=== PATIENT | female | born 1940 | race Caucasian/White ===

== ENCOUNTER 2019-07-22 15:32 | Emergency (ER) | payer MEDICARE, MEDICAID ==
[~2019-07-22] VITALS: Ht 152.4 cm; Wt 40.5 kg
[~2019-07-22 15:32] MED LIST: ASPIR 8181 MG PO; CARAFATE 11 GM/10 M1 PO; CELEXA20 MG PO; DIPHENHIST50 MG PO; IRON325 PO; LEVOTHYROXINE0.05 MG PO; NORCO 10-325 T1 EACH PO; PROTONIX40 M1 PO; TOLTERODINE TART2 MG PO; TRIPLE PASTE TP
[2019-07-22] MEDS ORDERED: AMLODIPINE BESY10 MG PO (15:40)
[2019-07-22] MEDS ORDERED: ASPIRIN81 M2 PO (15:40)
[2019-07-22] MEDS ORDERED: DIPHENHIST50 MG PO (15:41)
[2019-07-22] MEDS ORDERED: LUVOX 50MG TABL50 M1 PO (15:41)
[2019-07-22] MEDS ORDERED: KEFLEX500 M1 PO (15:42)
[2019-07-22] MEDS ORDERED: UNICOMPLEX M TA1 TA1 PO (15:44)
[2019-07-22] MEDS ORDERED: LORATADINE10 M1 PO (15:44)
[2019-07-22] MEDS ORDERED: MIRALAX17 GM PO (15:44)
[2019-07-22] MEDS ORDERED: NYAMYC15 GM TOP (15:46)
[2019-07-22] MEDS ORDERED: TEARS AGAIN15 ML OPHTHALMIC (15:46)
[2019-07-22] MEDS ORDERED: OMEPRAZOLE 20 M20 M1 PO (15:52)
[2019-07-22] MEDS ORDERED: TRAZODONE HCL50 MG PO (15:53)
[2019-07-22] MEDS ORDERED: TRAMADOL 50 MG50 MG PO (15:53)
[2019-07-22] MEDS ORDERED: OXYBUTYNIN 5 MG5 M2 PO (15:53)
[2019-07-22] MEDS ORDERED: PROTOPIC30 GM TOP (15:53)
[2019-07-22] MEDS ORDERED: TYLENOL325 MG PO (15:54)
[2019-07-22] MEDS ORDERED: VISTARIL 25 MG25 M1 PO (15:54)
[2019-07-22 17:06] LABS: URINE BILIRUBIN NEGATIVE (Negative); URINE BLOOD NEGATIVE (Negative); URINE CLARITY CLEAR; URINE COLOR YELLOW; URINE GLUCOSE-RANDOM NEGATIVE (Negative); URINE KETONES NEGATIVE (Negative); URINE LEUKOCYTES-REFLEX NEGATIVE (Negative); URINE NITRITE-REFLEX NEGATIVE (Negative); URINE PROTEIN NEGATIVE (Negative); URINE SPECIFIC GRAVITY 1.025 (1.005-1.030); URINE UROBILINOGEN 0.2 E.U./dl (0.2-1.0)
[2019-07-22] MEDS ORDERED: AUGMENTIN 875-1 EACH PO (17:40)
[2019-07-22] MEDS ORDERED: CENTANY30 GM TOP (17:41)
[2019-07-22 17:55] VITALS: BP 129/57
== END 2019-07-22 18:27 | disposition home or self-care (01) ==
LOC: M.ERS 15:32
PROVIDERS: Nurse Practitioner Family
DX: S81.811A Laceration without foreign body, right lower leg, initial encounter (principal); S90.31XA Contusion of right foot, initial encounter; I10 Essential (primary) hypertension; E78.00 Pure hypercholesterolemia, unspecified; F17.210 Nicotine dependence, cigarettes, uncomplicated; Z88.3 Allergy status to other anti-infective agents; W22.8XXA Striking against or struck by other objects, initial encounter; Y93.89 Activity, other specified; Y92.239 Unspecified place in hospital as the place of occurrence of the external cause; Y99.8 Other external cause status

== ENCOUNTER 2019-08-05 13:20 | Inpatient (IN) | payer MEDICARE, MEDICAID ==
[~2019-08-05] VITALS: Ht 152.4 cm; Wt 39.9 kg
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
[~2019-08-05 13:20] MED LIST changes: +AMLODIPINE BESY10 MG PO; +ASPIRIN81 M2 PO; +AUGMENTIN 875-1 EACH PO; +CENTANY30 GM TOP; +KEFLEX500 M1 PO; +LORATADINE10 M1 PO; +LUVOX 50MG TABL50 M1 PO; +MIRALAX17 GM PO; +NYAMYC15 GM TOP; +OMEPRAZOLE 20 M20 M1 PO; +OXYBUTYNIN 5 MG5 M2 PO; +PROTOPIC30 GM TOP; +TEARS AGAIN15 ML OPHTHALMIC; +TRAMADOL 50 MG50 MG PO; +TRAZODONE HCL50 MG PO; +TYLENOL325 MG PO; +UNICOMPLEX M TA1 TA1 PO; +VISTARIL 25 MG25 M1 PO
[2019-08-05 13:21] VITALS: BP 114/52
[2019-08-05] MEDS ORDERED: ROCEPHIN 11 GM/1001 IM (13:33)
[2019-08-05 14:08] LABS: ABSOLUTE BASOPHILS 0.1 thou/uL (0.0-0.2); ABSOLUTE EOSINOPHILS 0.7 thou/uL (0.0-0.7); ABSOLUTE LYMPHOCYTES 0.5 thou/uL (0.8-5.3); ABSOLUTE MONOCYTES 0.8 thou/uL (0.0-1.2); ABSOLUTE NEUTROPHILS 6.8 thou/uL (1.6-8.1); EOSINOPHILS 7.4 %; HEMATOCRIT 26.2 % (37.0-47.0); HEMOGLOBIN 8.8 gm/dL (12.0-15.0); LYMPHOCYTES 5.6 %; MCH 30.9 pg (26.0-34.0); MCHC 33.7 g/dL (28.0-37.0); MCV 91.6 fL (80.0-100.0); MONOCYTES 8.6 %; NUCLEATED RBCS 0 /100WBC; PLATELET COUNT* 340 thou/uL (150-400); POLYS 77.4 %; RBC 2.86 mil/uL (4.20-5.00); WBC 8.9 thou/uL (4.0-11.0)
[2019-08-05 14:15] LABS: CALCIUM 8.6 mg/dL (8.5-10.1); CREATININE 1.3 mg/dL (0.6-1.3); POTASSIUM 4.6 mmol/L (3.5-5.1)
[2019-08-05 14:20] LABS: ALBUMIN 2.6 g/dL (3.4-5.0); TOTAL BILIRUBIN 0.1 mg/dL (<0.1-1.0); TOTAL PROTEIN 6.3 g/dL (6.4-8.2)
[2019-08-05 16:50] VITALS: BP 145/61
[2019-08-05 16:56] VITALS: BP 112/47
[2019-08-05 17:10] VITALS: BP 135/56
--- NOTE | 2019-08-05 17:30 | NUR ---
REC'D REPORT FROM AIRPLANE PILOT CHIEF AT 1635. PATIENT TO UNIT VIA GURNEY AND AIRPLANE PILOT CHIEF AT 1650. PATIENT AMBULATED TO BATHROOM WITH ASSIST, UNSTEADY GAIT. A&OX4, ABLE TO EXPRESS NEEDS TO STAFF. MED/SURG STATUS. VS OBTAINED, WNL, O2 SATS >92% RA. ORIENTED TO ROOM, BED CONTROLS AND UNIT ROUTINE, ADMISSION ASSESSMENT DOCUMENTED. CALL LIGHT WITHIN REACH. HOURLY ROUNDING FOR SAFETY AND PATIENT NEEDS.
[2019-08-05 20:45] VITALS: BP 132/70
[2019-08-06 04:00] VITALS: BP 114/45
--- NOTE | 2019-08-06 05:02 | NUR ---
vitals wnl, temp max 99.6F, down to 98.6F with tylenol. pt complains of itching all over her body, partial relief from benadryl, reports this is normal for her since she moved to [employer]. able to reposition self in bed. call light within reach.
[2019-08-06 08:30] VITALS: BP 118/48
--- NOTE | 2019-08-06 10:00 | NUR ---
ASSUMED CARE AFTER REPORT APPROX 0730. OX4, ABLE TO EXPRESS NEEDS TO STAFF. MED/SURG STATUS. O2 SATS >92% RA. PATIENT C/O ITCHING. HOME MED OINTMENT NOT AVAILABLE, PATIENT WITH NO FAMILY MEMBER ABLE TO RETRIEVE MED FROM [facility]. PHYSICIAN TO BE CONTACTED FOR SUBSTITUTE. PRN MED GIVEN PER JAN. UP AD RONEY WITH NONSKID SHOES ON BLE FEET WHEN AMBULATING TO BATHROOM OR IN HALLWAY. CALL LIGHT IN REACH. HOURLY ROUNDING FOR SAFETY AND PATIENT NEEDS.
[2019-08-06 12:38] VITALS: BP 144/68
--- NOTE | 2019-08-06 13:31 | 2DMMODE ---
[place] [address] 2 D/M-MODE ECHOCARDIOGRAM Name: ANSELMO MORENO Room: [address] IN [facility]#: [id number] Admission: 08/05/19 Attend Phys: Bryn José Discharge: Date of : 42 Date of Service: 08/06/19 1331 Report #: [id number] THIS REPORT FOR: //name// APPROVED REPORT Study performed: 08/06/2019 11:23:48 EXAM: Comprehensive 2D, Doppler, and color-flow Echocardiogram Patient Location: In-Patient Room #: [facility] Status: routine BSA: 1.33 HR: 61 bpm BP: 114/45 mmHg Rhythm: NSR Other Information Study Quality: Good Indications Murmur 2D Dimensions IVSd: 9.81 (7-11mm) LVOT Diam: 19.24 (18-24mm) LVDd: 40.36 mm PWd: 10.39 (7-11mm) Ascending Ao: 30.42 (22-36mm) LVDs: 26.18 (25-40mm) Aortic Root: 32.12 mm Volumes Left Atrial Volume (Systole) LA ESV Index: 33.90 mL/m2 Aortic Valve AoV Peak Jg.: 1.31 m/s AO Peak Gr.: 6.84 mmHg LVOT Max P.19 mmHg AO Mean Gr.: 3.92 mmHg LVOT Mean P.43 mmHg LVOT Max V: 1.14 m/s AO V2 VTI: 27.54 cm LVOT Mean V: 0.71 m/s CLARIBEL (VTI): 2.55 cm2 LVOT V1 VTI: 24.14 cm Mitral Valve E/A Ratio: 1.01 MV Decel. Time: 205.12 ms MV E Max Jg.: 0.91 m/[place] [address] 2 D/M-MODE ECHOCARDIOGRAM Name: ANSELMO MORENO Room: [address] IN .R.#: [id number] Admission: 08/05/19 Attend Phys: Bryn José Discharge: Date of : 42 Date of Service: 08/06/19 1331 Report #: [id number] MV PHT: 59.49 ms MVA (PHT): 3.70 cm2 TDI E/Lateral E': 7.58 E/Medial E': 7.00 Medial E' Jg.: 0.13 m/s Lateral E' Jg.: 0.12 m/s Pulmonary Valve PV Peak Jg.: 0.91 m/s PV Peak Gr.: 3.32 mmHg Tricuspid Valve RAP Estimate: 5.00 mmHg TR Peak Gr.: 21.19 mmHg RVSP: 26.00 mmHg PA Pressure: 26.00 mmHg Left Ventricle The left ventricle is normal size. There is normal LV segmental wall motion. There is normal left ventricular wall thickness. Left ventricular systolic function is normal. The left ventricular ejection fraction is within the normal range. LVEF is 55-60%. The left ventricular diastolic function is normal. Right Ventricle The right ventricle is normal size. The right ventricular systolic function is normal. Atria The left atrium size is normal. The right atrium size is normal. Aortic Valve The aortic valve is normal in structure. No aortic regurgitation is present. There is no aortic valvular stenosis. Mitral Valve Mild mitral annular calcification. Trace mitral regurgitation. No evidence of mitral valve stenosis. Tricuspid Valve The tricuspid valve is normal in structure. Trace tricuspid regurgitation. No pulmonary hypertension. Pulmonic Valve The pulmonary valve is normal in structure. There is no pulmonic [place] [address] 2 D/M-MODE ECHOCARDIOGRAM Name: ANSELMO MORENO Room: [address] IN [facility]#: [id number] Admission: 08/05/19 Attend Phys: Bryn José Discharge: Date of : 42 Date of Service: 08/06/19 1331 Report #: [id number] Great Vessels The aortic root is normal in size. IVC is normal in size and collapses >50% with inspiration. Pericardium There is no pericardial effusion. <Conclusion> The left ventricle is normal size. There is normal left ventricular wall thickness. Left ventricular systolic function is normal. The left ventricular ejection fraction is within the normal range. LVEF is 55-60%. The right ventricle is normal size. The left atrium size is normal. The aortic valve is normal in structure. Mild mitral annular calcification. Trace mitral regurgitation. The tricuspid valve is normal in structure. IVC is normal in size and collapses >50% with inspiration. There is no pericardial effusion. There is normal LV segmental wall motion. <ELECTRONICALLY SIGNED> By: Arias Lopes MD, FACC 08/06/19 1331 133 133 Arias Lopes MD, FACC /INF
--- NOTE | 2019-08-06 15:41 | NUR ---
MET WITH PT, SHE IS LTC RESIDENT AT [facility] AND PLANS [place] THERE [place]. PT STATES SHE DOESN'T GET UP MUCH. CAN TRAVEL BY W/C VAN. SPOKE WITH [facility], THEY CAN ACCEPT BACK [place]. WILL FOLLOW [facility] [phone] FAX [phone]
--- NOTE | 2019-08-06 16:20 | NUR ---
WOUND CARE NOTE: CONSULT RECEIVED FOR LAC ON R LE LATERAL CALF; URTICARIC RASH ON BILATERAL UE PATIENT PRESENTS WITH A FULL THICKNESS LESION TO THE LATERAL ASPECT OF HER RIGHT CALF. AREA HAD BEEN SUTURED BEFORE, BUT APPEARS THAT THE SKIN FLAP HAS FAILED REVEALING A 5X7X0.3 DEVITALIZED AREA. SUTURES IN PLACE, BUT 2 FELL OUT DURING CLEANSING. WOUND BED IS MOIST, YELLOW, ADHERENT SLOUGH TISSUE. JOANNE-WOUND IS INFLAMMED AND EDEMATOUS. CLEANSED AREA WITH WOUND CLEANSER, PATTED DRY. PATIENT'S RN REDRESSED WOUND PER ORDERS. 2+ DP PULSE. EDUCATED PATIENT ON DRESSING SELECTION, COMMUNICATED UNDERSTANDING. RECOMMEND DAILY DRESSING CHANGES FOLLOW UP IN THE WOUND CENTER ENCOURAGE GOOD NUTRTION/HYDRATION DEBRIDEMENT OF DEVITALIZED TISSUE SMOKING CESSATION
[2019-08-06 21:40] VITALS: BP 115/45
[2019-08-06 22:49] LABS: URINE BILIRUBIN NEGATIVE (Negative); URINE BLOOD NEGATIVE (Negative); URINE CLARITY CLEAR; URINE COLOR YELLOW; URINE GLUCOSE-RANDOM NEGATIVE (Negative); URINE KETONES NEGATIVE (Negative); URINE LEUKOCYTES-REFLEX NEGATIVE (Negative); URINE NITRITE-REFLEX NEGATIVE (Negative); URINE PROTEIN NEGATIVE (Negative); URINE UROBILINOGEN 0.2 E.U./dl (0.2-1.0)
[2019-08-07 04:45] LABS: HEMATOCRIT 29.6 % (37.0-47.0); MCH 30.5 pg (26.0-34.0); MCHC 33.6 g/dL (28.0-37.0); MCV 90.6 fL (80.0-100.0); MPV 7.7 fl. (7.2-11.1); NUCLEATED RBCS 0 /100WBC; PLATELET COUNT* 373 thou/uL (150-400); RBC 3.27 mil/uL (4.20-5.00); RDW-CV 16.4 % (10.5-14.5); WBC 6.9 thou/uL (4.0-11.0)
[2019-08-07 04:59] LABS: CALCIUM 8.6 mg/dL (8.5-10.1); CREATININE 1.2 mg/dL (0.6-1.3); PHOSPHORUS* 2.9 mg/dL (2.5-4.9); POTASSIUM 4.8 mmol/L (3.5-5.1)
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
[2019-08-07 06:40] LABS: ABSOLUTE EOSINOPHILS 0.7 thou/uL (0.0-0.7); ABSOLUTE LYMPHOCYTES 0.6 thou/uL (0.8-5.3); ABSOLUTE MONOCYTES 0.5 thou/uL (0.0-1.2); ABSOLUTE NEUTROPHILS 5.2 thou/uL (1.6-8.1); PLATELET ESTIMATE ADEQUATE
[2019-08-07 08:00] VITALS: BP 114/43
--- NOTE | 2019-08-07 11:32 | NUR ---
ASSUMED CARE OF PATIENT THIS AM AT 0730. PATIENT IS DROWSY, ORIENTED X 4. SHE C/O LEFT LEG PAIN. DRESSING TO LEFT LEG IS DRY AND INTACT. PATIENT IS TURNING HERSELF IN BED. PATIENT MEDICATED FOR PAIN X 1. IV ANTIBIOTICS TO BE CONTINUED TODAY. PATIENT ASSISTED WITH ADLS NEEDED. WILL CONTINUE PLAN OF CARE.
[2019-08-07 23:16] VITALS: BP 129/55
[2019-08-08] VITALS: BP 109/43
[2019-08-08 08:00] VITALS: BP 126/49
--- NOTE | 2019-08-08 11:08 | NUR ---
ASSUMED CARE OF PATIENT THIS AM AT 0730. PATIENT IS DROWSY, ORIENTED X 4. SHE C/O CONTINUED PAIN TO HER LEFT LEG. IV ANTIBIOTICS TO BE CONTINUED TODAY. PATIENT ASSISTED UP TO THE BR. SHE HAS BEEN MEDICATED FOR PAIN OFF AND ON. NO FALLS OR INJURY.
[2019-08-08 15:49] VITALS: BP 111/43
[2019-08-08 19:50] VITALS: BP 122/54
--- NOTE | 2019-08-09 07:06 | NUR ---
PT REMOVED IV, UNABLE TO PLACE NEW IV, ABX HELD TILL IV CAN BE PLACE, INFORMANTION PASED ON TO ON COMMING SHIFT.
[2019-08-09 07:30] VITALS: BP 123/56
[2019-08-09 16:04] VITALS: BP 128/53
--- NOTE | 2019-08-09 16:35 | NUR ---
PT AOX4 WITH CONFUSION NOTED THIS SHIFT. PT WOUND CARE DONE IN THE AM AFTER DR ALFARO ASSESSED THE SITE. PT TOLERATING DIET AND IS FINISHING HER ENSURE DRINKS THAT ARE COMING UP ON THE TRAY. PT MED/SURG STATUS AND IS TOLERATING RA THIS SHIFT. PT REPORTS IRRITATION OF VAGINAL AREA AND SITE WAS CLEANED WITH WARM WASHCLOTH AND OINTMENT APPLIED. PT TRANSITIONED TO PO ABX AND IS WITHOUT A PIV AT THIS TIME. PT TOLERATING BEING UP AD RONEY THIS SHIFT. PODIATRY WAS CONSULTED FOR TOE NAIL TRIM THIS SHIFT PER DR ALFARO. PT ADAMENT THAT SHE HAD A BOUT OF BOWEL INCONTINENCE THIS SHIFT EVEN THOUGH IT WAS NOTED BY THE STAFF THAT SHE WAS CLEAN AND DRY. THE PT WAS IRRITATED THAT THE STAFF WOULD NO "CLEAN HER UP" BUT THERE WAS NOTHING TO CLEAN UP. PT WAS ASKED ORIENTATION QUESTIONS AND SHE WAS ABLE TO ANSWER THEM AFTER PROMPTING AND SHOWED IRRITATION AT THE QUESTIONS STATING THAT SHE, "KNOWS WHERE SHE IS". THE PT STATES SHE CANNOT TOLERATE THE WIPES THAT ARE SUPPLIED ON THE UNIT AND THIS RN USED A WARM WASHCLOTH TO CLEAN OFF ALL THE OINTMENT AND REAPPLY NEW OINTMENT AT THIS TIME. PT PROVIDED WITH MESH UNDERWEAR AND PAD SHE REQUESTED EVEN THOUGH HER VAGINAL AREA COULD BENEFIT FROM AIRING OUT...BUT PT DID NOT WANT TO DO THAT. HOURLY ROUNDING MAINTAINED THIS SHIFT, WILL CONTINUE TO MONITOR AND ASSESS.
--- NOTE | 2019-08-09 18:35 | NUR ---
DR LOPEZ AT BEDSIDE, WOUND CARE PERFORMED, CLEANSED WITH WOUND CLEANSER, VASOLINE GAUZE WITH MIDDLE CUT FOR DRAINAGE, AQUACELL AG, OPTIFOAM, THEN ABD PAD, WRAPPED WITH KURLIX AND NAT. WILL PASS ON TO SWABBER. DR LOPEZ STATED HE WOULD RETURN TOMORROW FOR TOENAIL CARE. SOCKS PLACED ON PT FEET AT THIS TIME. PT RESTING IN BED AND IS MORE RELAXED AFTER PAIN MEDICATION AND ANTIHISTAMINE PROVIDED EARLIER IN THE SHIFT. WILL CONTINUE TO MONITOR AND ASSESS
[2019-08-09 20:00] VITALS: BP 132/53
--- NOTE | 2019-08-09 22:55 | NUR ---
PT ALERT ORIENTED UNAPPRORIATE. FOUND PT SEVERAL TIMES STANDING IN ROOM NAKED. WHEN ASKED WHY WAS SHE NAKED SHE SAID, I'M GETTING READY TO TAKE A BATH. PT INFORMED NO BATH TUB IS IN ROOM. PT STATED SHE IS ITCHING. SLIME ORDER REQUESTED AND OBTAINED. WAITING ON PHARMACY TO SEND. MED SURG STATUS. NO IV ACCESS. ON RA.
[2019-08-10] VITALS: BP 133/56
--- NOTE | 2019-08-10 07:05 | NUR ---
CHANGE OF SHIFT, BEDSIDE REPORT GIVEN PARIENT SEEN SITTING UP AT EDGE OF BED ASSUMED PATIENT CARE
[2019-08-10 08:00] VITALS: BP 137/66
[2019-08-10] MEDS ORDERED: VITAMINC500 PO (10:04)
[2019-08-10] MEDS ORDERED: FOLIC ACID1 MG PO (10:04)
[2019-08-10] MEDS ORDERED: PREDNISONE 20 M20 MG PO (10:04)
[2019-08-10] MEDS ORDERED: DICLOXACILLIN500 MG PO (10:05)
[2019-08-10 10:07] VITALS: BP 137/66
[2019-08-10 10:27] VITALS: BP 137/66
--- NOTE | 2019-08-10 11:00 | NUR ---
ORD[facility] RECEIVED [facility] CALLED AND FAXED ORDERS TO [facility], THEY WILL ACCEPT AND SHE SET UP W/C VAN FOR 2PM. CHART COPIED. RN HAS NUMBER TO CALL REPORT. PT DECLINED TO HAVE ANY FAMILY CALLED. PT A/O. UP AMBULATING IN HALLS AFTER DISCUSSION
--- NOTE | 2019-08-10 14:13 | NUR ---
PATIENT DISCHARGED TO HOME ALL DC INSTRUCTIONS GIVEN, ACKNOWLEDGED, SIGNED PAPERWORK GIVEN PATIENTS IV AND HEART MONITOR REMOVED PERSONAL BELONGINGS RETURNED ESCORTED OUT AMBULATORY TO CAR
--- NOTE | 2019-08-10 14:31 | NUR ---
PATIENT DISCHARGED BACK TO [facility], [facility] ORDERS REVIEWED COPIES OF ORDERS AND CHART SENT PATIENT LEFT VIA VAN GOOD CONDITION REPORT GIVEN
--- NOTE | 2019-08-10 17:35 | NUR ---
PT. DISCHARGED TO [facility] PRIOR O.T. EVAL. PLEASE ORDER FURTHER O.T. SERVICES IF NEEDED.
== END 2019-08-10 14:40 | DRG 602 ==
LOC: M.ERS 13:20 → M.TBA-ER 14:17 → M.2W 14:17
PROVIDERS: Family Medicine; Physician Assistant; ADMIT Internal Medicine
PROC: 0HBKXZZ Excision of Right Lower Leg Skin, External Approach (ICD-10-PCS; principal; 2019-08-07)
DX: L03.115 Cellulitis of right lower limb (principal); E43 Unspecified severe protein-calorie malnutrition; Z68.1 Body mass index [BMI] 19.9 or less, adult; S81.811A Laceration without foreign body, right lower leg, initial encounter; I73.9 Peripheral vascular disease, unspecified; D52.9 Folate deficiency anemia, unspecified; N18.3 Chronic kidney disease, stage 3 (moderate); E03.9 Hypothyroidism, unspecified; M19.90 Unspecified osteoarthritis, unspecified site; L89.629 Pressure ulcer of left heel, unspecified stage; F17.210 Nicotine dependence, cigarettes, uncomplicated; L29.9 Pruritus, unspecified; L30.9 Dermatitis, unspecified; Z22.321 Carrier or suspected carrier of Methicillin susceptible Staphylococcus aureus; Z79.899 Other long term (current) drug therapy; Z88.8 Allergy status to other drugs, medicaments and biological substances; Z91.040 Latex allergy status; Z79.82 Long term (current) use of aspirin; Z79.1 Long term (current) use of non-steroidal anti-inflammatories (NSAID)

== ENCOUNTER → 2019-08-18 | Outpatient (CLI) | payer MEDICARE, MEDICAID ==
[~2019-08-18] MED LIST changes: +DICLOXACILLIN500 MG PO; +FOLIC ACID1 MG PO; +PREDNISONE 20 M20 MG PO; +ROCEPHIN 11 GM/1001 IM; +VITAMINC500 PO
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
== END ==
LOC: M.WC 14:00
DX: L97.812 Non-pressure chronic ulcer of other part of right lower leg with fat layer exposed (principal); L03.115 Cellulitis of right lower limb; E78.5 Hyperlipidemia, unspecified; I10 Essential (primary) hypertension; K21.9 Gastro-esophageal reflux disease without esophagitis; M19.90 Unspecified osteoarthritis, unspecified site; F17.200 Nicotine dependence, unspecified, uncomplicated; F41.9 Anxiety disorder, unspecified; Z79.82 Long term (current) use of aspirin

== ENCOUNTER → 2019-08-25 | Outpatient (CLI) | payer MEDICARE, MEDICAID | LOC: M.WC 04:46 | DX: L97.812 Non-pressure chronic ulcer of other part of right lower leg with fat layer exposed (principal); L03.115 Cellulitis of right lower limb; E78.5 Hyperlipidemia, unspecified; I10 Essential (primary) hypertension; K21.9 Gastro-esophageal reflux disease without esophagitis; M19.90 Unspecified osteoarthritis, unspecified site; F41.9 Anxiety disorder, unspecified; F17.200 Nicotine dependence, unspecified, uncomplicated ==